=== PATIENT | female | born 1975 | race African-American/Black ===

== ENCOUNTER 2018-10-31 21:39 | Emergency (ER) | payer MEDICAID ==
[~2018-10-31] VITALS: Ht 157.5 cm; Wt 76.2 kg
--- NOTE | 2018-10-31 22:10 | NUR ---
ED Nurse Note: pt seen by md and being d/c to home with prescription. ER DISCHARGE NOTE: Patient is cleared to be discharged per ERMD, pt is aox4, on room air, with stable vital signs. pt was given dc and prescription instructions, pt was able to verbalize understanding, pt id band removed without complications. pt is able to ambulate with steady gait. pt took all belongings.
[2018-10-31] MEDS ORDERED: CEPHALEXIN500 MG ORAL (22:12)
[2018-10-31 22:15] VITALS: BP 117/69
--- NOTE | 2018-10-31 22:57 | Emergency Room Report ---
History of Present Illness General Chief Complaint: Skin Rash/Abscess Source: Patient Present Illness HPI 43-year-old female presents ED for evaluation. States she was bitten by an insect 2 days ago on the left arm. Is getting more swollen and more painful. Itchy. Pain is dull, 5 out of 10, nonradiating. Denies fevers or chills. Denies any discharge. No other aggravating relieving factors. Denies any other associated symptoms Allergies: Coded Allergies: No Known Allergies (Unverified , 10/31/18) Patient History Past Medical History: none Past Surgical History: none Pertinent Family History: none Social History: Denies: smoking, alcohol use, drug use Last Menstrual Period: current Now: No : 1 Para: 1 Immunizations: UTD Reviewed Nursing Documentation: PMH: Agreed; PSxH: Agreed Nursing Documentation-PMH Past Medical History: No Stated History Review of Systems All Other Systems: negative except mentioned in HPI Physical Exam Vital Signs Date Time Temp Pulse Resp B/P (MAP) Pulse Ox O2 Delivery O2 Flow Rate FiO2 10/31/18 21:45 98.1 74 18 117/69 (85) 99 Room Air Sp02 EP Interpretation: reviewed, normal General Appearance: no apparent distress, alert, GCS 15, non-toxic Head: normocephalic Eyes: bilateral eye normal inspection, bilateral eye PERRL ENT: normal ENT inspection Neck: normal inspection Respiratory: normal inspection Cardiovascular #1: normal inspection Gastrointestinal: normal inspection Rectal: deferred Genitourinary: no CVA tenderness Musculoskeletal: normal inspection Neurologic: alert, oriented x3, responsive, motor strength/tone normal, sensory intact, speech normal Psychiatric: normal inspection Skin: other - erythema/induration/swelling LUE. no fluctuance or discharge Lymphatic: normal inspection Medical Decision Making Diagnostic Impression: Primary Impression: Insect bite Qualified Codes: S40.862A - Insect bite (nonvenomous) of left upper arm, initial encounter; W57.XXXA - Bitten or stung by nonvenomous insect and other nonvenomous arthropods, initial encounter ER Course Hospital Course 43-year-old female presents to ED with redness, swelling to LUE Differential diagnoses include: Cellulitis, dermatitis, insect bite, abscess Clinical course Patient placed on stretcher. After initial history, physical exam reveals a female in no acute distress. On exam there is a site for mild erythema and induration to the LUE. There is no fluctuance. There is no tenderness. No discharge. discussed findings with patient. Recommend warm compresses. Will prescribe antibiotics. Safe for discharge for close outpatient follow-up. Will provide referrals Diagnosis - bug bite stable and discharged to home with prescription for Keflex. warm compresses. Instructed to followup with PMD. Instructed return to ED if symptoms recur or worsen Last Vital Signs Date Time Temp Pulse Resp B/P (MAP) Pulse Ox O2 Delivery O2 Flow Rate FiO2 10/31/18 22:15 98.1 18 117/69 99 Room Air 10/31/18 21:45 74 Status: improved Disposition: HOME, SELF-CARE Condition: Stable Scripts Cephalexin* (KEFLEX*) 500 Mg Capsule 500 MG ORAL EVERY 6 HOURS for 7 Days, CAP Prov: Duke Leonard MD 10/31/18 Referrals: NON PHYSICIAN (PCP) Jose D Florez [facility]. [facility] Patient Instructions: Insect Bite, [id number] Additional Instructions: warm compresses. take antibiotics as directed. Duke Leonard MD Oct 31, 2018 22:57
== END 2018-10-31 22:15 | disposition home or self-care (01) ==
LOC: EMR 21:54
DX: S40.862A Insect bite (nonvenomous) of left upper arm, initial encounter (principal); W57.XXXA Bitten or stung by nonvenomous insect and other nonvenomous arthropods, initial encounter
CPT/HCPCS: 99282